=== PATIENT | male | born 1950 | race Caucasian/White ===

== ENCOUNTER → 2022-04-30 | Day surgery (SDC) | payer OTHER ==
[~2022-04-30] VITALS: Ht 182.9 cm; Wt 76.4 kg
[~2022-04-30] MED LIST: AZATHIOPRINE50 M1 PO; OMEPRAZOLE40 MG PO; REMICADE100 MG IV; URSODIOL300 MG PO
[2022-04-30 08:14] LABS: HCT 39.6 % (42.0-52.0); HGB 13.1 g/dl (13.2-18.0); MCH 32.9 pg (25.0-31.0); MCHC 33.1 g/dL (32.0-36.0); MCV 99.5 fL (78.0-100.0); MPV 10.4 fL (6.0-9.5); RBC 3.98 M/uL (4.70-6.00); RDW 13.5 % (11.5-14.0); WBC 6.1 K/uL (4.0-10.5)
[2022-04-30 08:31] LABS: ALBUMIN 3.9 g/dL (3.4-5.0); BILIRUBIN - TOTAL 0.6 mg/dL (0.2-1.0); BUN/CREAT RATIO (CALC) 21.3 RATIO; CREATININE 0.89 mg/dL (0.67-1.17); GLOBULIN (CALCULATION) 4.8 g/dL; POTASSIUM 4.1 mmol/L (3.5-5.1); TOTAL PROTEIN 8.7 g/dL (6.4-8.2)
== END | disposition home or self-care (01) ==
LOC: FAS 07:11
PROVIDERS: Surgery
DX: K31.9 Disease of stomach and duodenum, unspecified (principal); K21.00 Gastro-esophageal reflux disease with esophagitis, without bleeding; K29.60 Other gastritis without bleeding; J44.9 Chronic obstructive pulmonary disease, unspecified; Z87.891 Personal history of nicotine dependence
CPT/HCPCS: 36415; 80053; J2704; J7120